=== PATIENT | female | born 1960 | race Hispanic/Latino ===

== ENCOUNTER 2017-05-04 23:49 | Emergency (ER) | payer BC ==
[2017-05-04 23:50] VITALS: BMI 38.3
[2017-05-05 00:07] VITALS: BP 96/64; PULSE 105; RESP 18; TEMP 97.2; O2SAT 96
[2017-05-05] MEDS ORDERED: Sodium Chloride 0.9% 500 ML IV STA (00:59)
--- NOTE | 2017-05-05 01:16 | ED PDOC ---
Arrival/HPI - History of Present Illness Time/Duration: 4-6 hours Symptom Course: Improving Quality: Other (shivering) Severity Level: Mild, Moderate Activities at Onset: Rest Context: Sitting <Marielena Parker - Last Filed: 05/05/17 02:28> <Jacinto Gabriel - Last Filed: 05/05/17 05:51> - General Chief Complaint: Medical Clearance Time Seen by Provider: 05/05/17 00:10 - History of Present Illness Narrative History of Present Illness (Text): 05/05/17 01:06 Pt is a 57 YO F presents to ED seeking medical clearance for a reaction she had 3 hrs earlier while watching TV. Pt who has pmh of DMII and migraines describes suddenly feeling intensely chilled along with a racing heart, causing her entire body to shake uncontrollably for approx 30 minutes. Despite wrapping herself with blankets, she continued to feel cold. Pt called her son-in-law who immediately brought her to the ER. Pt reports taking topiramate in the evening for migraines x 6 mnths but recently started taking venlafaxine 37.5 mg in the evening as well. Pt shas never had this reaction prior; recent stress test was negative. Family Hx includes cerebral aneurysm. (Marielena Parker) Past Medical History - Tetanus Immunization Tetanus Immunization: Up to Date - Reproductive Menopause: Yes - Cardiac Hx Cardiac Disorders: No - Pulmonary Hx Respiratory Disorders: No - Neurological Hx Neurological Disorder: No Hx Migraine: Yes - HEENT Hx HEENT Disorder: No - Renal Hx Renal Disorder: No - Endocrine/Metabolic Hx Diabetes Mellitus Type 2: Yes - Hematological/Oncological Hx Blood Disorders: No - Integumentary Hx Dermatological Disorder: No - Musculoskeletal/Rheumatological Hx Musculoskeletal Disorders: No - Gastrointestinal Hx Gastrointestinal Disorders: No - Genitourinary/Gynecological Hx Genitourinary Disorders: No - Psychiatric Hx Psychophysiologic Disorder: No Hx Depression: No Hx Emotional Abuse: No Hx Physical Abuse: No Hx Substance Use: No - Surgical History Hx Hysterectomy: Yes Hx Tonsillectomy: Yes Other/Comment: hemmorhoids/lazy r eye/fatty tissue left breastand l shoulder - Suicidal Assessment Feels Threatened In Home Enviroment: No <Marielena Parker - Last Filed: 05/05/17 02:28> Family/Social History Smoking Status: Never Smoked Hx Alcohol Use: No Hx Substance Use: No Hx Substance Use Treatment: No <KeithJenniferMarielena L - Last Filed: 05/05/17 02:28> - Physician Review Nursing Documentation Reviewed: Yes Family/Social History: No Known Family HX <HailymalloryJacinto - Last Filed: 05/05/17 05:51> Allergies/Home Meds <Marielena Parker - Last Filed: 05/05/17 02:28> <Jacinto Gabriel - Last Filed: 05/05/17 05:51> Allergies/Adverse Reactions: Allergies ciprofloxacin [From Cipro] Allergy (Verified 05/05/17 00:14) RASH exenatide [From Bydureon] Allergy (Verified 05/05/17 00:14) RASH levofloxacin [From Levaquin] Allergy (Verified 05/05/17 00:14) RASH Penicillins Allergy (Verified 05/05/17 00:11) RASH shellfish derived Allergy (Verified 05/05/17 00:11) RASH tapentadol [From Nucynta] Allergy (Verified 05/05/17 00:14) RASH iv dyefor mri Allergy (Uncoded 05/05/17 00:14) ANAPHYLAXIS Home Medications: Home Meds Medication Instructions Recorded Confirmed Jentaduten 200 mg PO BID 05/05/17 05/05/17 Pantoprazole [Protonix] 40 mg PO DAILY 05/05/17 05/05/17 Polyethylene Glycol 600 527 gra PO DAILY 05/05/17 05/05/17 [Polyethylene Glycol 600] Topranate 200 mg PO HS 05/05/17 05/05/17 Ventlafaxine Hcl 37.5 mg PO HS 05/05/17 05/05/17 Review of Systems - Review of Systems Constitutional: Normal. absent: Fatigue, Weight Change, Fevers, Night Sweats, Other ENT: Normal. absent: Hearing Changes, Tinnitus, TMJ Pain, Voice Changes, Sore Throat, Rhinorrhea, Epistaxis, Sinus Congestion, Other Respiratory: Normal. absent: SOB, Cough, Sputum, Wheezing, Other Cardiovascular: Palpitations. absent: Normal, Chest Pain, Edema, Calf Pain, QUINONEZ , Orthopnea, SY, Syncope, Other Musculoskeletal: Normal. absent: Arthralgias, Back Pain, Neck Pain, Joint Swelling, Myalgias, Other Skin: Normal. absent: Rash, Pruritis, Skin Lesions, Laceration, Abscess, Ulcer , Cellulitis, Other Neurological: Normal. absent: Headache, Dizziness, Focal Weakness, Gait Changes , Speech Changes, SC, Facial Droop, DE, Disequilibrium, SE, Seizure, Other Psychiatric: Normal. absent: Anxiety, Depression, Suicidal Ideation, Other <Marielena Parker L - Last Filed: 05/05/17 02:28> Physical Exam Vital Signs Reviewed: Yes Temperature: Afebrile Blood Pressure: Hypotensive Pulse: Tachycardic Respiratory Rate: Normal Appearance: Positive for: Well-Appearing, Non-Toxic, Comfortable Pain Distress: None Mental Status: Positive for: Alert and Oriented X 3. No: Confused, Agitated, Lethargic, Comatose, other Finger Stick Blood Glucose: 157 - Systems Exam Head: Present: Atraumatic, Normocephalic Pupils: Present: PERRL. No: Sluggish, Non-Reactive, Pinpoint, Other Extroacular Muscles: Present: EOMI Ears: Present: Normal Mouth: Present: Moist Mucous Membranes Pharnyx: Present: Normal. No: ERYTHEMA, EXUDATE, TONSILS ENLARGED, Peritonsilar Swelling, Uvular Deviation, Muffled/Hoarse Voice, Strider, Soft Palate/Uvular Edema, Other Respiratory/Chest: Present: Clear to Auscultation, Good Air Exchange, Respiratory Distress. No: Accessory Muscle Use, Wheezes, Decreased Breath Sounds, Rales, Retracting, Rhonchi, Tachypneic, Tender to Palpation, Other Cardiovascular: Present: Regular Rate and Rhythm, Normal S1, S2. No: Murmurs Abdomen: Present: Normal Bowel Sounds. No: Tenderness, Distention, Peritoneal Signs Upper Extremity: Present: Normal Inspection. No: Cyanosis, Edema Lower Extremity: Present: Normal Inspection. No: Edema Neurological: Present: CN II-XII Intact, Speech Normal, Motor Func Grossly Intact, Normal Sensory Function, Normal Cerebellar Funct, Norm Deep Tendon Reflexes, Gait Normal Skin: Present: Warm, Dry, Normal Color. No: Rashes Psychiatric: Present: Alert, Oriented x 3, Normal Insight, Normal Affect <Marielena Parker L - Last Filed: 05/05/17 02:28> Vital Signs Temp Pulse Resp BP Pulse Ox 05/04/17 23:56 97.2 F L 105 H 18 96/64 L 96 Medical Decision Making - EKG Interpretation Interpreted by ED Physician: Yes (NSR, Nono-specific ST abnormality, Rate of 91) <Marielena Parker - Last Filed: 05/05/17 02:28> <HailymalloryJacinto - Last Filed: 05/05/17 05:51> ED Course and Treatment: 05/05/17 01:23 Pt is a 57 YO F presents to ED seeking medical clearance for a reaction she had 3 hrs earlier while watching TV. Pt who has pmh of DMII and migraines describes suddenly feeling intensely chilled along with a racing heart, causing her entire body to shake uncontrollably for approx 30 minutes. On PE, HR is slightly tachycardic and lungs CTAB. There is no focal pain or weakness noted, muscle strength 5/5 x4 bilateral Working Dx 1. Drug interaction 2. cardiac event 3. electrolyte imbalance 4. viral/bacterial infection Plan: ECG CBC, CMP, UA IV Fluids, 500cc bolus over 30 mins (Marielena Parker) - Lab Interpretations Lab Results: 05/05/17 01:22 05/05/17 01:22 Lab Results 05/05/17 01:22: Sodium 142, Potassium 3.8, Chloride 108 H, Carbon Dioxide 21, Anion Gap 17, BUN 18, Creatinine 0.9, Est GFR ( Amer) > 60, Est GFR (Non- Af Amer) > 60, Random Glucose 170 H, Calcium 10.1, Total Bilirubin 0.4, AST 19, ALT 25, Alkaline Phosphatase 70, Total Protein 7.2, Albumin 4.2, Globulin 3.0, Albumin/Globulin Ratio 1.4 05/05/17 01:22: Urine Color Yellow, Urine Appearance Clear, Urine pH 6.0, Ur Specific [place] 1.015, Urine Protein Negative, Urine Glucose (UA) Negative, Urine Ketones Negative, Urine Blood Negative, Urine Nitrate Negative, Urine Bilirubin Negative, Urine Urobilinogen 0.2, Ur Leukocyte Esterase Small H, Urine RBC 0 - 2, Urine WBC 1 - 3, Ur Epithelial Cells 1 - 3, Urine Bacteria Rare 05/05/17 01:22: WBC 7.4, RBC 4.38, Hgb 12.8, Hct 38.1, MCV 87.0, MCH 29.2, MCHC 33.6, RDW 14.1, Plt Count 344, MPV 9.3 05/05/17 00:30: POC Glucose (mg/dL) 157 H - Medication Orders Current Medication Orders: Discontinued Medications Sodium Chloride (Sodium Chloride 0.9%) 500 mls @ 999 mls/hr IV .Q31M STA Stop: 05/05/17 01:29 Last Admin: 05/05/17 01:32 Dose: 999 mls/hr eMAR Start Stop Document 05/05/17 01:32 SS (Rec: 05/05/17 01:32 SS [facility] [id number]) Intravenous Solution Start Date 05/05/17 Start Time 01:32 End Date 05/05/17 End time 02:04 Total Infusion Time 32 - PA / BOXCAR WEIGHER / Resident Statement / has reviewed & agrees with the documentation as recorded. <Jacinto Gabriel - Last Filed: 05/05/17 05:51> Disposition/Present on Arrival - Present on Arrival Any Indicators Present on Arrival: No History of DVT/PE: No History of Uncontrolled Diabetes: No Urinary Catheter: No History of Decub. Ulcer: No History Surgical Site Infection Following: None - Disposition Have Diagnosis and Disposition been Completed?: Yes Disposition Time: 02:25 Patient Plan: Discharge <Marielena Parker - Last Filed: 05/05/17 02:28> - Present on Arrival Any Indicators Present on Arrival: No - Disposition Have Diagnosis and Disposition been Completed?: Yes <Jacinto Gabriel - Last Filed: 05/05/17 05:51> - Disposition Diagnosis: UTI (urinary tract infection) Disposition: HOME/ ROUTINE Condition: IMPROVED Discharge Instructions (ExitCare): Nitrofurantoin Combination (By mouth), Urinary Tract Infection in Women (ED) Additional Instructions: Dear Patient, You have been diagnosed with a urinary tract infection. Please note that we are giving you an antibiotic that needs to be be taken for the entire 7 days. If you experience fevers, chills, sweats, increased burning or blood on urination, please return to the emergency room for further evaluation. We recommend following up with your doctor in one week. Thanks you for your patience and wishing you good health. Prescriptions: Nitrofurantoin Macrocrystals [Macrobid] 100 mg PO BID 7 Days #14 cap Forms: [facility] (Thai)
[2017-05-05 01:40] LABS: HEMOGLOBIN 12.8 g/dL (12.0-16.0); MEAN CORPUSCULAR HEMOGLOBIN 29.2 pg (25.0-35.0); MEAN CORPUSCULAR HGB CONC 33.6 g/dl (31.0-37.0); MEAN PLATELET VOLUME 9.3 fl (7.0-11.0); RBC 4.38 10^6/uL (3.5-6.1); RED CELL DISTRIBUTION WIDTH 14.1 % (11.5-14.5); URINE BILIRUBIN NEGATIVE (NEGATIVE); URINE BLOOD NEGATIVE (NEGATIVE); URINE GLUCOSE (UA) NEGATIVE (NEGATIVE); URINE LEUKOCYTE ESTERASE SMALL Leu/uL (NEGATIVE); URINE NITRATE NEGATIVE (NEGATIVE); URINE PROTEIN NEGATIVE mg/dL (<30 mg/dL); URINE UROBILINOGEN 0.2 E.U./dL (<1 E.U./dL); WHITE BLOOD COUNT 7.4 10^3/ul (4.5-11.0)
[2017-05-05 01:41] LABS: URINE APPEARANCE CLEAR (CLEAR); URINE COLOR YELLOW (YELLOW)
[2017-05-05 01:54] LABS: ALB/GLOB RATIO 1.4 (1.1-1.8); ALBUMIN 4.2 g/dL (3.0-4.8); ALT/SGPT 25 U/L (7-56); AST/SGOT 19 U/L (14-36); BLOOD UREA NITROGEN 18 mg/dL (7-21); CALCIUM 10.1 mg/dL (8.4-10.5); GFR AFRICAN-AMERICAN > 60; GFR NON-AFRICAN AMERICAN > 60
[2017-05-05 01:57] LABS: URINE BACTERIA RARE (NEG); URINE RBC 0 - 2 /hpf (0-2)
--- NOTE | 2017-05-05 10:03 | CARD ---
APPROVED REPORT EKG Measurement Heart [id number] <Conclusion> Normal sinus rhythm Nonspecific ST abnormality Abnormal ECG
== END 2017-05-05 02:36 | disposition home or self-care (01) ==
LOC: ED 23:49
DX: N39.0 Urinary tract infection, site not specified (principal); E11.9 Type 2 diabetes mellitus without complications
CPT/HCPCS: 80053; 81001; 82948; 85027; 87086; 93005; 96360; 99282; J7040